=== PATIENT | female | born 1985 | race Caucasian/White ===

== ENCOUNTER 2017-01-07 09:36 | Emergency (ER) | payer BC, OTHER ==
[~2017-01-07] VITALS: Ht 162.6 cm; Wt 86.2 kg
[~2017-01-07 09:36] MED LIST: HYDR1TAB12 PO; PREN1TAB60 PO
[2017-01-07 09:39] VITALS: BP 165/79
--- NOTE | 2017-01-07 11:11 | RAD ---
Indication fall last night. . Having contractions. Obstetrical ultrasound examination was performed. No prior imaging is available. There is a single, viable, IUP. heart rate of 149 was documented. The maternal cervical length is unremarkable at 5.4 cm. The amount of amniotic fluid appears normal. The placenta is predominantly fundal. Biparietal diameter of 5 cm, head circumference of 19.1 cm, abdominal circumference of 17.4 cm and femoral length of 3.9 cm are compatible with a gestational age of approximately 21 weeks 6 days. By sonographic analysis the expected date of confinement is 05/14/2017. The estimated weight is approximately 500 g. A survey was not performed but no gross anomalies were seen. IMPRESSION: Limited survey. Single viable IUP of approximately 21 weeks 6 days gestation.
--- NOTE | 2017-01-07 11:19 | PHYS DOC ---
Past History Past Medical History: No Pertinent History Past Surgical History: No Surgical History Alcohol Use: None Drug Use: None Adult General Chief Complaint Chief Complaint: ABDOMINAL PAIN IN HPI HPI Patient is a 31-year-old female, 20 weeks 5 days , who presents with the concern for possible contractions after a fall yesterday. Patient had a fall on the steps last evening. She fell onto her back/bottom. The patient denies anyone intentionally injuring her. It was an accident. She is 20 weeks 5 days . She is currently between OB doctor's because she had a change in insurance. She is planning to deliver at [facility]. This morning she feels some occasional tightness in her anterior lower abdomen/suprapubic area and was concerned it might be contractions. She has had no fluid leakage or bleeding. She went to her doctor's office who told her to come here to be checked out. PCP Dr Delaney Review of Systems Review of Systems Constitutional: Denies fever or chills [] Respiratory: Denies cough or shortness of breath [] Cardiovascular: Denies chest pain GI: Denies abdominal pain, nausea, vomiting, bloody stools or diarrhea [] : Denies vaginal discharge or fluid or blood Musculoskeletal: She has a scrape on the left arm from the fall, no specific bony pain Integument: Denies rash or skin lesions [] Neurologic: Denies headache, focal weakness or sensory changes [] Allergies Allergies Allergies Coded Allergies Type Severity Reaction Last Updated Verified No Known Allergies Allergy Unknown 09/16/16 Yes Physical Exam Physical Exam Constitutional: Well developed, well nourished, no acute distress, non-toxic appearance. Alert, ambulatory, mentating normally. HENT: Normocephalic, atraumatic, bilateral external ears normal, nose normal. [ ] Eyes: conjunctiva normal, no discharge. [] Neck: Normal range of motion, no stridor. [] Abdomen: Soft, nontender. Gravid uterus is nontender and I do not palpate a contraction. heart tones checked with me at the bedside and are strong at 150 Skin: Warm, dry, no erythema, no rash. [] Extremities: No tenderness, no cyanosis, no clubbing, ROM intact, no edema. Left forearm with a superficial abrasion Neurologic: Alert and oriented X 3, normal motor function, normal sensory function, no focal deficits noted. [] EKG EKG [] Radiology/Procedures Radiology/Procedures PROCEDURE: OB LIMITED Indication fall last night. . Having contractions. Obstetrical ultrasound examination was performed. No prior imaging is available. There is a single, viable, IUP. heart rate of 149 was documented. The maternal cervical length is unremarkable at 5.4 cm. The amount of amniotic fluid appears normal. The placenta is predominantly fundal. Biparietal diameter of 5 cm, head circumference of 19.1 cm, abdominal circumference of 17.4 cm and femoral length of 3.9 cm are compatible with a gestational age of approximately 21 weeks 6 days. By sonographic analysis the expected date of confinement is 05/14/2017. The estimated weight is approximately 500 g. A survey was not performed but no gross anomalies were seen. IMPRESSION: Limited survey. Single viable IUP of approximately 21 weeks 6 days gestation. DICTATED AND SIGNED BY: TORRES HALL MD DATE: 01/07/17 1106[] Course & Med Decision Making Course & Med Decision Making Pertinent Labs and Imaging studies reviewed. (See chart for details) 31-year-old female who is 20 weeks 5 days presents after a fall last night. I discussed with the patient that after ensuring she is medically stable , my recommendation would be to transfer her to a facility that has OB capabilities for some amount of monitoring. I explained to her that we usually do monitoring after a fall to rule out contractions and also make sure the fetus is in no distress. The patient states that she does not want to be transferred anywhere, today is her son's birthday republican and she doesn't really feel like this rises to the level of needing to be monitored. Her wish was to have an ultrasound to check her baby. I discussed with her that we can certainly do an ultrasound and that we'll give us a lot of useful information, but we are not able to monitor for contractions or distress and she is agreeable to wanting to stay here at [place] and does not want to be transferred over to go anywhere for monitoring. heart tones are strong and regular at 150. Exam is unremarkable with no contractions palpated. Patient denies any intentional injury, her fall was accidental due to a trip. Ultrasound was done and read by the radiologist. There is no indication of any problem with the patient's placenta or . Gestational age 21 weeks 6 days. Patient was again offered transfer for monitoring and declined. Return precautions were given. She should mostly rest off of her feet and drink plenty of fluids today. [] Dragon Disclaimer Dragon Disclaimer This chart was dictated in whole or in part using Voice Recognition software in a busy, high-work load, and often noisy Emergency Department environment. It may contain unintended and wholly unrecognized errors or omissions. Departure Departure: Impression: Primary Impression: Contusion, back Additional Impression: Second trimester Disposition: HOME, SELF-CARE Condition: STABLE Referrals: NON,STAFF (PCP) Patient Instructions: Labor Prevention, [id number] Additional Instructions: The ultrasound today shows normal placenta and with 21 weeks 6 days approximate age. For 1-2 days, mostly stay off of your feet, lay down as much as possible, drink plenty of fluids. If you have any concerning symptoms including leakage of fluid or blood, pain in the area of your uterus, contractions, or other concerning symptoms, return to emergency department at a location that does provide OB services, such as [facility]. Today, I offered U transfer to a facility with OB services for monitoring and monitoring for contractions, you declined these services. Problem Qualifiers BRENNAN ALLEN MD January 07, 2017 11:19
== END 2017-01-07 11:24 | disposition home or self-care (01) ==
LOC: ER 09:36
DX: O9A.212 Injury, poisoning and certain other consequences of external causes complicating pregnancy, second trimester (principal); S30.0XXA Contusion of lower back and pelvis, initial encounter; S40.812A Abrasion of left upper arm, initial encounter; W10.8XXA Fall (on) (from) other stairs and steps, initial encounter; Y93.89 Activity, other specified; Y99.8 Other external cause status; Y92.89 Other specified places as the place of occurrence of the external cause; Z3A.21 21 weeks gestation of pregnancy
CPT/HCPCS: 76815; 99284-25